=== PATIENT | male | born 1980 | race Caucasian/White ===

== ENCOUNTER 2017-07-30 19:13 | Emergency (ER) | payer OTHER ==
[~2017-07-30] VITALS: Ht 177.8 cm; Wt 96.6 kg
--- NOTE | 2017-07-30 19:22 | NUR ---
IV #1 IV STARTED BY STACEY,RN 20G LEFT AC
[2017-07-30] MEDS ORDERED: ASPIRIN PO STA (19:26)
[2017-07-30] MEDS ORDERED: ASPIRIN ONE (19:26)
--- NOTE | 2017-07-30 19:27 | PCM.EKG ---
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
--- NOTE | 2017-07-30 19:30 | ER.PDOC ---
General Chief Complaint: Chest Pain-Cardiac Nature Stated Complaint: CHEST PAIN Time seen by MD: 19:24 Source: patient, family, other (37 yo male who states CP on-ff x 1 MONTH, no medical attention. made him come in to be checked because he was more fatigues today. + family history: father [place] of it age 58, mother [place] age 33, but of multiple sclerosis age 58. 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 ) Exam Limitations: no limitations History of Present Illness Timing/Duration: 4-6 hours Severity/Quality: mild Radiation: arms Activities at Onset: none Prior CP/Workup: no Prior Cardiac Workup Nitro Today/Relief: No Nitro Taken Today Aspirin Today: No Aspirin Today Associated Symptoms: denies symptoms Allergies: Coded Allergies: codeine (Verified Allergy, Unknown, 07/30/17) morphine (Verified Allergy, Unknown, 07/30/17) Past Medical History Medical History: no pertinent history Surgical History: no surgical history Social History Smoking: cigarettes Alcohol Use: none Drug Use: none Constitutional: malaise All Other Systems: Reviewed and Negative Physical Exam General Appearance: No Apparent Distress HEENT: PERRL/EOMI Neck: Non-Tender Respiratory: chest non-tender, lungs clear, normal breath sounds Cardiovascular: Regular Rate, Rhythm, No Edema, No Gallop, No JVD Gastrointestinal: Normal Bowel Sounds Extremities: Normal Range of Motion, Non-Tender, Normal Inspection Neurologic/Psychiatric: informatica mdm developer II-XII NML as Tested, No Motor/Sensory Deficits Skin: Normal Color, Warm/Dry Results/Orders Results/Orders as symptoms increasing over 1 month, positive family history on both sides, overweight male smoker--will work up and consult hospitalist Progress Progress CXR: negative repeat cardiac enzymes and EKG both normal, so o.k. to go home with f/u in one week with PCP or cards for further workup/risk stratification. #2 EKG: NSR, rhythm, no ST T wave changes Reason/Comments: no acute ischemic changes on EKG Departure Time of Disposition: 23:32 Disposition: 01 HOME, SELF-CARE Impression: Primary Impression: Precordial pain Condition: Stable Duration or Time Spent with Pa: 10 SOFY EVANGELISTA MD Jul 30, 2017 19:30
[2017-07-30 19:33] LABS: BASOPHIL % 0.3 % (0.0-0.2); EOSINOPHIL # 0.1 10^3/uL (0.0-0.2); HEMOGLOBIN 16.6 g/dL (13.9-16.3); LYMPHOCYTES # 2.9 10^3/uL (1.0-4.8); LYMPHOCYTES % 43.2 % (24.0-44.0); MEAN CELL HGB 31.4 pg (26-34); MEAN CELL HGB CONCENTRATION 34.6 g/dL (33-37); MEAN CORP VOLUME 90.9 fL (78-100); MEAN PLATELET VOLUME 8.7 fL (7.8-11.0); MONOCYTES # 0.6 10^3/uL (0.3-0.8); MONOCYTES % 9.4 % (5.0-12.0); NEUTROPHILS % 44.5 % (41.0-85.0); RED CELL DISTRIBUTION WIDTH 12.2 % (11.5-14.5); WHITE BLOOD CELL 6.6 10^3/uL (4.5-11.0)
--- NOTE | 2017-07-30 19:44 | DIREP ---
PROCEDURE:CHEST 1 VIEW COMPARISON:None. INDICATIONS:CHEST PAIN FINDINGS: LUNGS/PLEURA:No significant pulmonary parenchymal abnormalities. No effusions. VASCULATURE:Normal. Unremarkable pulmonary vasculature. CARDIAC:Normal. No cardiac silhouette abnormality or cardiomegaly. MEDIASTINUM:Normal. No visible mass or adenopathy. BONES:Normal. No fracture or visible bony lesion. OTHER:Negative. CONCLUSION:Normal examination. Dictated by: Alessandro Wasserman M.D. on 07/30/2017 at 07:43 PM
[2017-07-30 20:01] LABS: ALANINE AMINOTRANSFERASE 307 U/L (12-78); ALKALINE PHOSPHATASE 82 U/L (50-136); ASPARTATE AMINO TRANSFERASE 143 U/L (0-35); CALCIUM 8.8 mg/dL (8.4-10.5); CARBON DIOXIDE 26.4 mmol/L (20.0-32); GLUCOSE 94 mg/dL (70-110)
--- NOTE | 2017-07-30 23:05 | NUR ---
LAB CONFIRMED REDRAW OF TROPONIN. AWAITING RELEASE OF LABS FOR PATIENT DC.
--- NOTE | 2017-07-30 23:20 | NUR ---
RT IN ROOM FOR REPEAT EKG
--- NOTE | 2017-07-30 23:35 | NUR ---
IV DC'D TIP INTACT, NO BLEEDING
[2017-07-30 23:40] VITALS: BP 108/65
--- NOTE | 2017-07-30 23:45 | PCM.EKG ---
[facility] Test Date: 2017-07-30 Test Time: 23:23:34 Pat Name: JUVENAL CUMMINGS Department: Patient ID: [facility]-[id number] Room: Gender: M Sighter: LUIS A : 1980 Requested By: SOFY LEMUS Order Number: [id number] Reading MD: Sofy Lemus Measurements Intervals [place] Rate: 75 P: 38 SC: 144 QRS: 76 QRSD: 94 T: 68 QT: 394 QTc: 439 Interpretive Statements Normal sinus rhythm Normal ECG No previous ECG available for comparison Electronically Signed On 07-31-2017 0:55:22 PULLMAN CAR CLERK by Sofy Lemus Please click the below link to view image of tracing.
== END 2017-07-30 23:37 | disposition home or self-care (01) ==
LOC: ER 19:13
DX: R07.2 Precordial pain (principal); F17.210 Nicotine dependence, cigarettes, uncomplicated; Z88.5 Allergy status to narcotic agent
CPT/HCPCS: 36415; 71010; 80053; 82550; 82553; 83880; 84484; 85025; 85379; 85610; 85730; 86677; 93005; 99285